=== PATIENT | male | born 1950 | race Caucasian/White ===

== ENCOUNTER 2021-04-15 13:13 | Outpatient (CLI) | payer MEDICARE, SELFPAY ==
[2021-04-15 14:32] LABS: SARS-CoV-2 Ag Negative (Negative)
[2021-04-16 19:52] LABS: SARS-CoV-2 RNA PCR Negative
== END 2021-04-15 13:14 | disposition home or self-care (01) ==
LOC: CHSLAB 13:19
PROVIDERS: PCP Family Medicine; Visit Provider Family Medicine
DX: Z20.822 Contact with and (suspected) exposure to COVID-19 (principal)
CPT/HCPCS: 87426; C9803; U0003; U0005

== ENCOUNTER → 2024-01-14 14:39 | Outpatient (REF) | payer MEDICARE, SELFPAY | LOC: ANHLAB 14:39 | PROVIDERS: PCP Family Medicine; Visit Provider Plastic Surgery | DX: D09.9 Carcinoma in situ, unspecified (principal) | CPT/HCPCS: 88305 ==

== ENCOUNTER → 2024-06-27 15:45 | Outpatient (REF) | payer MEDICARE, SELFPAY ==
--- OUTSIDE RECORDS SUMMARY | 2024-06-27 17:10 | XMS_ITS | Encounter Summary ---
Author Organization [facility] Address [address] [place] [address] Care Team Providers Care Dry Cleaning Checker Name Role Phone Francois Rodriguez MD Primary Care Provider [phone] Araceli TurnerP- Unavailable [phone] Cassie Steven MD Unavailable Encounter Details Date Type Department Care Team (Late Contact Info) Description 04/12/2020 Abstract [facility] [address] [place] [phone] Abstract, Doc [facility] Social History Tobacco Use Types Packs/Day Years Used Date Smoking Tobacco: Former Cigarettes Q uit: 1972 Smokeless Tobacco: Never Alcohol Use Standard Drinks/Week Comments Yes 0 (1 standard drink = 0.6 oz pur e alcohol) 4 weekly Sex and Gender Information Value Date Recorded Sex Assigned at Male 04/28/2024 1:06 PM FLIGHT DATA TECHNICIAN Legal Sex Male 8:40 PM CDT Gender Identity Not on file Sexual Orientation Not on file Occupation Industry Job Start Date Job End Date Not on file Not on file Not on file Not on file COVID-19 Exposure Response Date Recorded In the last month, have you been in contact with someone who was confirmed or suspected to have Coronavirus / COVID-19? No / Unsure 04/12/2020 11:38 AM FLIGHT DATA TECHNICIAN documented as of this encounter Plan of Treatment Upcoming Encounters Date Type Department Care Team (Late Contact Info) Description 12/05/2024 2:45 PM CDT Office Visit [facility] [address] [place] [phone] Cassie Steven MD [address] [place] [address] documented as of this encounter Procedures Procedure Name Priority Date/Time Associated Diagnosis Comments CMP (ABSTRACTED LAB) Routine 03/30/2019 HEMOGLOBIN, GLYCOSYLATED Routine 03/30/2019 LIPID PANEL Routine 03/30/2019 documented in this encounter Results * LIPID PANEL (03/30/2019) CHOLESTEROL 156 HDL 44 TRIGLYCERIDES 154 LDL (CALCULATED) 81 03/30/2019 us Doc [facility] LABORAT[facility] Final Result * HEMOGLOBIN, GLYCOSYLATED (03/30/2019) ESTIMATED AVG GLUCOSE 7.4 03/30/2019 us Doc [facility] LABORATORY Final Result * CMP (ABSTRACTED LAB) (03/30/2019) SODIUM S/P/B 141 POTASSIUM S/P/B 4.2 CHLORIDE S/P/B 102 CO2 24 BUN 16 CREATININE S/P/B 1.0 0.7 - 1.3 EGFR AFR. AMER. 90 <=90 EGFR NON-AFR. AMER. 78 <=90 CALCIUM S/P/B 9.7 GLUCOSE 139 mg/dL TOTAL PROTEIN S/P/B 6.7 ALBUMIN S/P/B 4.6 3.5 - 5.0 AST 22 ALT 24 ALKALINE PHOSPHATASE S/P/B 112 BILIRUBIN TOTAL S/P/B 0.3 03/30/2019 us Doc [facility] Abstract LAB-OUTSIDE/ABSTRACTED Final Result documented in this encounter Visit Diagnoses Not on filedocumented in this encounter Additional Health Concerns Infection Onset Date Last Indicated Resolved Time COVID-19 Rule Out 07/09/2020 07/09/2020 07/10/2020 9:25 AM CDT COVID-19 Rule Out 06/01/2021 06/01/2021 06/01/2021 6:51 PM FLIGHT DATA TECHNICIAN documented as of this encounter Care Teams Dry Cleaning Checker Relationship Specialty Start Date End Date Francois Rodriguez MD [address] [place] [phone] PCP - General FAMILY PRACTICE 10/05/15 Araceli Turner FNP-BC [address] [place] [phone] NURSE PRACTITIONER 11/07/15 08/11/21 Cassie Steven MD [address] [place] [address] Consulting Physician CARDIOVASCULAR DISEASE 05/06/24 documented as of this encounter
--- OUTSIDE RECORDS SUMMARY | 2024-06-27 17:10 | XMS_ITS | Encounter Summary ---
Author Organization [facility] Address [address] [place] [phone] Care Team Providers Care Banana Handler Name Role Phone Francois oRdriguez MD Primary Care Provider Cassie Steven MD Unavailable Encounter Details Date Type Department Care Team (Late Contact Info) Description 05/27/2024 [employer] Sports Message [facility] [address] [place] [phone] [facility] Provider Echo results Social History Tobacco Use Types Packs/Day Years Used Date Smoking Tobacco: Former Cigarettes Q uit: 1972 Smokeless Tobacco: Never Alcohol Use Standard Drinks/Week Comments Not Currently 0 (1 standard drink = 0.6 oz pur e alcohol) 4 weekly Sex and Gender Information Value Date Recorded Sex Assigned at Male 04/28/2024 1:06 PM RISK CONTROL DIRECTOR Legal Sex Male 8:40 PM CDT Gender Identity Not on file Sexual Orientation Not on file Occupation Industry Job Start Date Job End Date Not on file Not on file Not on file Not on file documented as of this encounter Plan of Treatment Upcoming Encounters Date Type Department Care Team (Late Contact Info) Description 12/05/2024 2:45 PM CDT Office Visit [facility] [place] [phone] Cassie Steven MD [address] [place], [place] [phone] documented as of this encounter Visit Diagnoses Not on filedocumented in this encounter Care Teams Banana Handler Relationship Specialty Start Date End Date Francois Rodriguez MD [address] [place] [phone] PCP - General FAMILY PRACTICE 10/05/15 Cassie Steven MD [address] [place] [address] Consulting Physician CARDIOVASCULAR DISEASE 05/06/24 documented as of this encounter
--- OUTSIDE RECORDS SUMMARY | 2024-06-27 17:10 | XMS_ITS | Clinical Summary ---
Author Organization [facility] Address [address] [place] [address] Care Team Providers Care Sack Filler Name Role Phone Francois Rodriguez MD Primary Care Provider Rob Crowley MD Unavailable Allergies No known active allergies Medications buPROPion 12 hr (WELLBUTRIN SR) 150 MG 12 hr tablet Take 1 tablet (150 mg total) by mouth 2 (two) times daily. 7 Active metoprolol tartrate 50 MG tablet Take by mouth 2 (two) times daily. Active nitroGLYCERIN 0.[address] 1 tablet (0.4 mg total) under the tongue every 5 (five) minutes as needed for Chest Pain. Maximum of 3 doses, one tablet every 5 minutes. Active gabapentin 300 MG capsule Take 2 capsules (600 mg total) by mouth 3 (three) times daily. Active atorvastatin 40 MG tablet TAKE ONE TABLET BY MOUTH IN THE EVENING 90 tablet 3 7 Active Additional Information Patient taking differently: 40 mg Oral Nightly at bedtime, TAKE ONE TABLET BY MOUTH IN THE EVENING, Reported on 05/06/2024 magnesium oxide 400 MG tablet Take 1 tablet (400 mg total) by mouth daily. Active pregabalin 150 MG capsule Take 1 capsule (150 mg total) by mouth 2 (two) times a day. 0 Active glipiZIDE XL (GLUCOTROL XL) 5 MG 24 hr tablet Take 1 tablet (5 mg total) by mouth daily. 4 Active omeprazole (PRILOSEC) 40 MG capsule Take 1 capsule (40 mg total) by mouth 2 (two) times daily. 4 Active tamsulosin (FLOMAX) 0.4 MG Cap Take 1 capsule (0.4 mg total) by mouth nightly at bedtime. 4 Active traMADol (ULTRAM) 50 MG tablet Take 1 tablet (50 mg total) by mouth daily. 4 Active NON FORMULARY Carsgisema (Cargrillinitide ) similar to yulyjonnycristobal Active aspirin EC (ECOTRIN) 81 MG tablet Take 1 tablet (81 mg total) by mouth daily. 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 07/12/2020 Cardiovascular stress test abnormal 07/12/2020 CAD (coronary artery disease) Myocardial infarct, old Mixed hyperlipidemia Hypertension Encounters Date Type Department Care Team Description 05/27/2024 TwentyFour6 Message [facility] [address] [place] [address] [facility] Provider Echo results 05/24/2024 1:00 PM POWDER COMPOUNDER - 05/24/2024 11:59 PM POWDER COMPOUNDER Hospital Encounter [facility] [address] [place] [address] Rob Crowley MD Discharge Disposition: Home or Self Care (Routine Discharge) 05/24/2024 Travel 05/09/2024 7:53 AM POWDER COMPOUNDER - 05/09/2024 11:59 PM POWDER COMPOUNDER Hospital Encounter [facility] [address] [place] [address] Abiel Russell PA Discharge Disposition: Home or Self Care (Routine Discharge) 05/09/2024 Travel 05/06/2024 9:30 AM POWDER COMPOUNDER Office Visit [facility] [address] [place] [address] Rob Crowley MD Heart Problem 05/06/2024 9:14 AM POWDER COMPOUNDER - 05/06/2024 11:59 PM POWDER COMPOUNDER Hospital Encounter [facility] [address] [place] [address] Rob Crowley MD Discharge Disposition: Home or Self Care (Routine Discharge) 05/06/2024 Telephone [facility] [address] [place] [address] Rob Crowley MD Information 05/06/2024 Travel 05/05/2024 Telephone [facility] [address] [place] [address] Rob Crowley MD Appointment Reminder 05/05/2024 Orders Only [facility] [address] [place] [address] Rob Crowley MD 04/28/2024 1:09 PM POWDER COMPOUNDER - 04/28/2024 11:59 PM POWDER COMPOUNDER Hospital Encounter [facility] [address] [place] [address] Abiel Russell, PA Discharge Disposition: Home or Self Care (Routine Discharge) 04/28/2024 Orders Only [place] [id number] [place] [address] Abiel Russell, PA 04/28/2024 Travel 04/27/2024 Telephone [facility] [address] [place] [address] Rob Crowley MD Appointment Request (Re-establish cardiac care) from Last 3 Months Immunizations Name Administration Dates Next Due Influenza Adult (Generic) 01/03/2021,12/20/2019, 12/16/2018 Family History Medical History Relation Comments Cancer Brother 1 Diabetes Brother 1 Heart Attack Brother 2 Coronary artery disease Brother 3 history of CABG Heart Attack Father Complications from hip fracture Mother Diabetes Sister 2 No Known Problems Sister 3 No Known Problems Sister 4 Relation Status Comments Brother 1 Brother 2 Alive Brother 3 Alive Father (Age 63) Mother (Age 84) Sister 1 (Age 72) CVA Sister 2 Alive Sister 3 Alive Sister 4 Alive Social History Tobacco Use Types Packs/Day Years Used Date Smoking Tobacco: Former Cigarettes Q uit: 1972 Smokeless Tobacco: Never Alcohol Use Standard Drinks/Week Comments Not Currently 0 (1 standard drink = 0.6 oz pur e alcohol) 4 weekly Sex and Gender Information Value Date Recorded Sex Assigned at Male 04/28/2024 1:06 PM POWDER COMPOUNDER Legal Sex Male 8:40 PM CDT Gender Identity Not on file Sexual Orientation Not on file Occupation Industry Job Start Date Job End Date Not on file Not on file Not on file Not on file Last Filed Vital Signs Vital Sign Reading Time Taken Comments Blood Pressure 130/84 05/06/2024 11:15 AM POWDER COMPOUNDER Pulse 59 05/06/2024 11:15 AM POWDER COMPOUNDER Temperature 36.4 C (97.6 F) 02/23/2024 10:17 AM POWDER COMPOUNDER Respiratory Rate 16 05/06/2024 11:15 AM POWDER COMPOUNDER Oxygen Saturation 100% 05/06/2024 11:15 AM POWDER COMPOUNDER Inhaled Oxygen Concentration - - Weight 87.1 kg (192 lb) 05/06/2024 11:15 AM POWDER COMPOUNDER Height 182.9 cm (6') 05/06/2024 11:15 AM POWDER COMPOUNDER Body Mass Index 26.04 05/06/2024 11:15 AM POWDER COMPOUNDER Plan of Treatment Upcoming Encounters Date Type Department Care Team (Late st Contact Info) Description 12/05/2024 2:45 PM CDT Office Visit [facility] [place] [address] Rob Crowley MD [address] [place] [address] Health Maintenance Due Date Last Done Comments ASCVD Statin 1950 Hepatitis C 09/11/1969 Annual Medicare Wellness Visit 09/11/2016 ASCVD LDL 08/12/2020 08/13/2019, 01/0 03/2019, 09/07/2015, Additional history exists Zoster Vaccines (2 of 2) 02/16/2024 12/22/2023 COVID-19 Vaccine ( season) 2024 12/22/2023, 04/04/2023, 12/27/2021, Additional history exists DTaP, Tdap and Td Vaccines (2 - Td or Tdap) 08/17/2029 08/18/2019 Colorectal Cancer Screening Colonoscopy (10 Years) 06/05/2031 06/04/2021, 06/04/2021 AAA SCREENING Completed 09/01/2023 Influenza Adult Completed 12/11/2023, 11/29, 12/06/2021, Additional history exists Pneumococcal Vaccine: 65+ Years Completed 12/17/2023 RSV Immunization or 60+ Years Completed 12/22/2023 Meningococcal B Vaccine Aged Out No l onger eligible based on patient's age to complete this topic Meningococcal Vaccine Aged Out No nathaniel adriana eligible based on patient's age to complete this topic RSV Immunizations Under 20 Months Aged Out No longer eligible based on patient's age to complete this topic Procedures Procedure Name Priority Date/Time Associated Diagnosis Comments USE ECHOCARDIOGRAM Routine 05/24/2024 2: 54 PM POWDER COMPOUNDER Coronary artery disease involving elem coronary artery of elem heart without angina pectoris NM BONE SCAN WHOLE BODY WO SPECT Routine 05/09/2024 11:30 AM POWDER COMPOUNDER Hypercalcemia USV CAROTID DUPLEX TREY Routine 9:17 AM POWDER COMPOUNDER Dizziness CT HEAD WO CON Routine 05/09/2024 8:13 AM POWDER COMPOUNDER Dizziness ECG 12-LEAD Routine 05/06/2024 9:20 AM POWDER COMPOUNDER Coronary artery disease involving elem coronary artery of elem heart without angina pectoris MISCELLANEOUS LAB TEST Routine 1:25 PM POWDER COMPOUNDER Hypercalcemia COMPREHENSIVE METABOLIC PANEL Routine 04/28/2024 1:25 PM POWDER COMPOUNDER Hypercalcemia CT CHEST WO CON Routine 09/01/2023 9:19 AM CDT Lung nodules COLONOSCOPY 06/04/2021 10:44 AM POWDER COMPOUNDER LIPID PANEL Routine 08/13/2019 Mixed hyperlipidemia from Last 3 Months or Most Recently Relevant to Health Maintenance Results * USE ECHOCARDIOGRAM (05/24/2024 2:54 PM POWDER COMPOUNDER) Anatomical Region Laterality Modality Cardiac Ultrasound 05/24/2024 1:10 PM POWDER COMPOUNDER Narrative 05/24/2024 8:08 PM POWDER COMPOUNDER Echocardiography Report Pat.Name: Daryl Carter Pat.ID: [id number] .Date: 05/24/2024 Refer.MD: Amy, [facility] Exam Time: 1:10:00 PM Study Type:OUTREACH Height: 72 in Weight: 192 lb BSA: 2.09 m2 Age: 6 1950,73Y Sex: M Sonogrphr: Am Pat. Stat.:Outpatient Reason for Study:Coronary artery disease involving elem coronary artery of elem heart without angina pectoris, Shortness of breath Procedures: Study performed at [place], [place] and interpreted by [facility]. 2D, M-mode, Doppler, Color Flow ++++++++++++++++++++++++++++++++++++ SUMMARY: ++++++++++++++++++++++++++++++++++++ The left ventricular size is normal. Estimated left ventricular ejection fraction is 55-60%. Left ventricular diastolic function is abnormal (grade 1 - impaired relaxation). The right ventricle size is normal. The right ventricular function is normal. There is trace tricuspid regurgitation. ++++++++++++++++++++++++++++++++++++ FINDINGS: ++++++++++++++++++++++++++++++++++++ LV: The left ventricular size is normal. The left ventricular systolic function is normal. Estimated left ventricular ejection fraction is 55-60%. Left ventricular diastolic function is abnormal (grade 1 - impaired relaxation). RV: The right ventricle size is normal. The right ventricular function is normal. LA: Left atrial size is normal. RA: The right atrial size is normal. PEDRO: No evidence of pericardial effusion. AO: Aorta is normal. SVn: Inferior vena cava is not assessable. AV: The aortic valve is trileaflet. There is no aortic stenosis. There is no evidence of aortic regurgitation. MV: Structurally normal mitral valve. Trace to mild mitral regurgitation. Redundant chordae visualized. PV: The pulmonic valve is normal There is trace pulmonic regurgitation TV: The tricuspid valve appears structurally normal. There is trace tricuspid regurgitation. <Electronic Signature> 05/24/2024 08:08 PM Rob Crowley M.D. Procedure Note Rob Crowley MD - 05/24/2024 Echocardiography Report Pat.Name: Daryl Carter Pat.ID: [id number] .Date: 05/24/2024 [facility]00 PM Study Type:[facility] Height: 72 in Weight: 192 lb BSA: 2.09 m2 Age: 6 1950,73Y Sex: M Sonogrphr: Am Pat. Stat.:Outpatient Reason for Study:Coronary artery disease involving elem coronary artery of elem heart without angina pectoris, Shortness of breath Procedures: Study performed at [place], [place] and interpreted by [facility]. 2D, M-mode, Doppler, Color Flow ++++++++++++++++++++++++++++++++++++ SUMMARY: ++++++++++++++++++++++++++++++++++++ The left ventricular size is normal. Estimated left ventricular ejection fraction is 55-60%. Left ventricular diastolic function is abnormal (grade 1 - impaired relaxation). The right ventricle size is normal. The right ventricular function is normal. There is trace tricuspid regurgitation. ++++++++++++++++++++++++++++++++++++ FINDINGS: ++++++++++++++++++++++++++++++++++++ LV: The left ventricular size is normal. The left ventricular systolic function is normal. Estimated left ventricular ejection fraction is 55-60%. Left ventricular diastolic function is abnormal (grade 1 - impaired relaxation). RV: The right ventricle size is normal. The right ventricular function is normal. LA: Left atrial size is normal. RA: The right atrial size is normal. PEDRO: No evidence of pericardial effusion. AO: Aorta is normal. SVn: Inferior vena cava is not assessable. AV: The aortic valve is trileaflet. There is no aortic stenosis. There is no evidence of aortic regurgitation. MV: Structurally normal mitral valve. Trace to mild mitral regurgitation. Redundant chordae visualized. PV: The pulmonic valve is normal There is trace pulmonic regurgitation TV: The tricuspid valve appears structurally normal. There is trace tricuspid regurgitation. <Electronic Signature> 05/24/2024 08:08 PM Rob Crowley M.D. us Rob Crowley MD ECHO Final Result * NM BONE SCAN WHOLE BODY WO SPECT (05/09/2024 11:30 AM POWDER COMPOUNDER) Anatomical Region Laterality Modality Bone Nuclear Medicine 05/09/2024 12:2 5 PM POWDER COMPOUNDER Impressions 05/09/2024 12:31 PM POWDER COMPOUNDER IMPRESSION: 1. No focal scintigraphic uptake in a pattern to suggest osteoblastic metastatic disease. 2. Multifocal osteoarthritic degenerative uptake. Ordered By: ABIEL RUSSELL Interpreted By: Felicia Oden MD, 05/09/2024 12:25 PM Narrative 05/09/2024 12:31 PM POWDER COMPOUNDER [place] [id number] [place] [address] EXAMINATION: BONE SCINTIGRAPHY (WHOLE-BODY) DATE OF STUDY: 05/09/2024 RADIOPHARMACEUTICAL: 27.9 mCi Tc-99m MDP i.v. HISTORY: Hypercalcemia. FINDINGS: Delayed whole-body scintigrams were obtained. Additional dedicated static images of the head and neck were obtained. Prior nuclear medicine studies used for comparison: none Other radiographic comparisons: none No focal scintigraphic uptake in a pattern to suggest osteoblastic metastatic disease. Multifocal osteoarthritic degenerative uptake involving the shoulders, sternoclavicular joints, wrists, hands, spine, hips, knees, ankles, and feet. Procedure Note Felicia Oden MD - 05/09/2024 [place] [address] [place] [address] EXAMINATION: BONE SCINTIGRAPHY (WHOLE-BODY) DATE OF STUDY: 05/09/2024 RADIOPHARMACEUTICAL: 27.9 mCi Tc-99m MDP i.v. HISTORY: Hypercalcemia. FINDINGS: Delayed whole-body scintigrams were obtained. Additionaldedicated static images of the head and neck were obtained. Prior nuclear medicine studies used for comparison: none Other radiographic comparisons: none No focal scintigraphic uptake in a pattern to suggest osteoblasticmetastatic disease. Multifocal osteoarthritic degenerative uptakeinvolving the shoulders, sternoclavicular joints, wrists, hands, spine,hips, knees, ankles, and feet. IMPRESSION: 1. No focal scintigraphic uptake in a pattern to suggest osteoblasticmetastatic disease. 2. Multifocal osteoarthritic degenerative uptake. Ordered By: ABIEL RUSSELL Interpreted By: Felicia Oden MD, 05/09/2024 12:25 PM us Abiel Russell [place] [facility] Final Result * USV CAROTID DUPLEX TREY (05/09/2024 9:17 AM POWDER COMPOUNDER) Anatomical Region Laterality Modality Neck Ultrasound 05/09/2024 12:4 2 PM POWDER COMPOUNDER Impressions 05/09/2024 12:53 PM POWDER COMPOUNDER IMPRESSION: 1. Degree of stenosis in the proximal internal carotid arteries in the less than 50% category by past which criteria bilaterally. 2. Bilateral antegrade vertebral artery flow. 3. 2 cm complex partially cystic mass left thyroid gland with increasing complexity of intracystic papillary projections. This is technically indeterminate and of moderate suspicion. Correlation with ultrasound-guided percutaneous biopsy of this lesion would be recommended to exclude malignancy. Ordered By: ABIEL RUSSELL Interpreted By: Frantz Barksdale MD, 05/09/2024 12:42 PM Narrative 05/09/2024 12:53 PM POWDER COMPOUNDER [place] [address] [place] [address] EXAM: ULTRASOUND CAROTID DOPPLER BILATERAL SCAN EXAM DATE: 05/09/2024 9:17 AM CLINICAL STATEMENT: DIZZINESS COMPARISON: Thyroid ultrasound 06/01/2023 PROTOCOL: Sonographic images were obtained over the bilateral carotid distributions evaluating spectral Doppler wave forms and peak systolic velocities. Images were also obtained over both vertebral arteries. Anatomic Site: Right PSV (cm/sec) ___ Left PSV (cm/sec) ----- --------- CCA: 80 74 ECA: 130 130 Proximal ICA: 66 69 Mid ICA: 91 68 Distal ICA: 71 64 ----- --------- ICA/CCA ratio: 1.1 0.9 ----- --------- FINDINGS: The images demonstrate some mild intimal thickening and plaque formation at both common carotid bifurcations. Degree of stenosis in the proximal internal carotid arteries in the less than 50% category by past which criteria bilaterally. Both external carotid arteries are patent. Bilateral antegrade vertebral artery flow. Incidental note is made of a complex partially cystic and partially solid nodule involving the left lobe of the thyroid gland measuring 2.0 cm in diameter. This is similar in overall size compared to previous thyroid ultrasound, however there appears to be somewhat increased irregular papillary soft tissue structures within the cystic component of the nodule. This would be a TIRADS 4 lesion with increasing complex intracystic papillary projections. Ultrasound-guided percutaneous biopsy of this lesion would therefore be recommended to exclude malignancy. Procedure Note Frantz Barksdale MD - 05/09/[address] [place] [address] EXAM: ULTRASOUND CAROTID DOPPLER BILATERAL SCAN EXAM DATE: 05/09/2024 9:17 AM CLINICAL STATEMENT: DIZZINESS COMPARISON: Thyroid ultrasound 06/01/2023 PROTOCOL: Sonographic images were obtained over the bilateral carotiddistributions evaluating spectral Doppler wave forms and peak systolicvelocities. Images were also obtained over both vertebral arteries. Anatomic Site: Right PSV (cm/sec) ___ Left PSV (cm/sec) ----- --------- CCA: 80 74 ECA: 130 130 Proximal ICA: 66 69 Mid ICA: 91 68 Distal ICA: 71 64 ----- --------- ICA/CCA ratio: 1.1 0.9 ----- --------- FINDINGS: The images demonstrate some mild intimal thickening and plaque formationat both common carotid bifurcations. Degree of stenosis in the proximalinternal carotid arteries in the less than 50% category by past whichcriteria bilaterally. Both external carotid arteries are patent. Bilateralantegrade vertebral artery flow. Incidental note is made of a complex partially cystic and partially solidnodule involving the left lobe of the thyroid gland measuring 2.0 cm indiameter. This is similar in overall size compared to previous thyroidultrasound, however there appears to be somewhat increased irregularpapillary soft tissue structures within the cystic component of thenodule. This would be a TIRADS 4 lesion with increasing complexintracystic papillary projections. Ultrasound-guided percutaneous biopsyof this lesion would therefore be recommended to exclude malignancy. IMPRESSION: 1. Degree of stenosis in the proximal internal carotid arteries in theless than 50% category by past which criteria bilaterally. 2. Bilateral antegrade vertebral artery flow. 3. 2 cm complex partially cystic mass left thyroid gland with increasingcomplexity of intracystic papillary projections. This is technicallyindeterminate and of moderate suspicion. Correlation withultrasound-guided percutaneous biopsy of this lesion would be recommendedto exclude malignancy. Ordered By: ABIEL RUSSELL Interpreted By: Frantz Barksdale MD, 05/09/2024 12:42 PM us Abiel Russell [facility] Final Result * CT HEAD WO CON (05/09/2024 8:13 AM POWDER COMPOUNDER) Anatomical Region Laterality Modality Head Computed Tomogra phy 05/09/2024 8:43 AM POWDER COMPOUNDER Impressions 05/09/2024 8:46 AM POWDER COMPOUNDER IMPRESSION: 1) No evidence of acute intracranial abnormality. Ordered By: ABIEL RUSSELL Interpreted By: Frantz Barksdale MD, 05/09/2024 8:43 AM Narrative 05/09/2024 8:46 AM POWDER COMPOUNDER [place] [id number] [facility] [place] [address] Examination: CT HEAD WO CON Exam time: 05/09/2024 8:10 AM Clinical history: Dizziness for one month Comparison: 09/24/2020 Technique: Axial images obtained from level of foramen magnum to the vertex without contrast using low-dose CT technique. Sagittal and coronal reconstruction. Findings: There is a normal craniovertebral junction. Ventricles are normal in size morphology. Extra-axial CSF spaces are normal. Atherosclerotic vascular calcifications are noted involving the [place]. No evidence of acute intracranial hemorrhage. There is no evidence of a focal intracranial mass lesion. No abnormal extra- axial fluid collection is demonstrated. The sella and CP angle regions are unremarkable. There is no evidence of acute regional edema, mass effect or midline shift. Mastoid air cells are clear bilaterally. Paranasal sinuses are clear. Procedure Note Frantz Barksdale MD - 05/09/[address] [place] [address] Examination: CT HEAD WO CON Exam time: 05/09/2024 8:10 AM Clinical history: Dizziness for one month Comparison: 09/24/2020 Technique: Axial images obtained from level of foramen magnum to thevertex without contrast using low-dose CT technique. Sagittal and coronalreconstruction. Findings: There is a normal craniovertebral junction. Ventricles arenormal in size morphology. Extra-axial CSF spaces are normal.Atherosclerotic vascular calcifications are noted involving the [place]. No evidence of acute intracranial hemorrhage. There is no evidence of a focal intracranial mass lesion. No abnormalextra-axial fluid collection is demonstrated. The sella and CP angleregions are unremarkable. There is no evidence of acute regional edema,mass effect or midline shift. Mastoid air cells are clear bilaterally. Paranasal sinuses are clear. IMPRESSION: 1) No evidence of acute intracranial abnormality. Ordered By: ABIEL RUSSELL Interpreted By: Frantz Barksdale MD, 05/09/2024 8:43 AM [address] Russell [place] CT Final Result * ECG 12 lead (HOSPITAL PERFORMED ONLY) (05/06/2024 9:20 AM POWDER COMPOUNDER) 05/06/2024 9:20 AM POWDER COMPOUNDER Narrative [facility] - 05/06/2024 6:50 PM POWDER COMPOUNDER [address] [place] [address] Test Date: 2024-05-06 Pat Name: DARYL CARTER Department: 3 Room: Gender: Male Forklift Material Handler: ZANDER : 1950 Requested By: ROB CROWLEY Order Number: [id number] Reading MD: Rob Crowley Measurements Intervals [place] Rate: 61 P: 230 FL: 128 QRS: 43 QRSD: 104 T: 42 QT: 388 QTc: 392 Interpretive Statements SINUS RHYTHM WITH OCCASIONAL SUPRAVENTRICULAR PREMATURE COMPLEXES ER COMPOUNDER Procedure Note Rob Crowley MD - 05/06/2024 [place] [id number] [facility] [place] [address] Test Date: 2024-05-06 Pat Name: DARYL CARTER Department: 3 Room: Gender: Male Forklift Material Handler: BANNER : 1950 Requested By: ROB CROWLEY Order Number: [id number] Reading MD: Rob Crowley Measurements Intervals [place] Rate: 61 P: 230 FL: 128 QRS: 43 QRSD: 104 T: 42 QT: 388 QTc: 392 Interpretive Statements SINUS RHYTHM WITH OCCASIONAL SUPRAVENTRICULAR PREMATURE COMPLEXES ER COMPOUNDER Rob Crowley MD ECG ORDERABLES Final Result [facility] * MISCELLANEOUS LAB TEST (04/28/2024 1:25 PM POWDER COMPOUNDER) TEST NAME: [id number] ALKALINE PHOSPHATASE FRACTIONATION 04/28/2024 1:28 PM POWDER COMPOUNDER [facility] SPECIMEN TYPE SST SERUM 04/28/2024 1:28 PM POWDER COMPOUNDER [facility] TEST RESULT: Flexitest 1 05/02/2024 1:49 PM POWDER COMPOUNDER [employer] KAYLA DEAN Comment: Flexitest 1 Alkaline Phosphatase Fractionation Alkaline Phosphatase 130 U/L 35-144 Thermostable Fraction 55 U/L Thermostable Fraction 42 % Alkaline phosphatase fractionation interpretation: 1) Thermostable values of greater than 35%: Hepatic disease and combined disease where hepatic component predominates clinically. 2) Thermostable values of 25-35%: Combined hepatic and skeletal disease in various proportions. 3) Thermostable values of less than 25%: Skeletal disease with increased osteoblastic activity. The above figures are relevant only when the total serum alkaline phosphatase is elevated. Test Performed by Micheal Pena, [facility], [address] [place], [place] Aubrey Young M.D., Ph.D., Director of Laboratories , [facility] [id number] 04/28/2024 1:25 PM POWDER COMPOUNDER [facility] Final Result [facility] [employer] [facility] [address] [place], [place] , [place] [phone] [facility] [address] [place] [address], * (ABNORMAL) COMPREHENSIVE METABOLIC PANEL (04/28/2024 1:25 PM POWDER COMPOUNDER) SODIUM S/P/B 139 136 - 145 MMOL/L 04/28/2024 1:48 PM P[employer]DER COMPOUND[employer] [facility] POTASSIUM S/P/B 4.0 3.5 - 5.1 MMOL/L 04/28/2024 1:48 PM [employer] COMP[employer] [facility] CHLORIDE S/P/B 103 98 - 107 MMOL/L 04/28/2024 1:48 PM [employer] COMP[employer] [facility] CO2 27.4 21.0 - 32.0 MMOL/L 04/28/2024 1:48 PM [employer] COMP[employer] [facility] GLUCOSE 163(H) 70 - 99 MG/DL 04/28/2024 1:48 PM [employer] COMP[employer] [facility] Comment: FASTING GLUCOSE 100 TO 125 MG/DL IS CONSISTENT WITH IMPAIRED FASTING GLUCOSE. FASTING GLUCOSE >125 MG/DL IS CONSISTENT WITH DIABETES. RANDOM GLUCOSE >200 MG/DL WITH HYPERGLYCEMIC SYMPTOMS IS CONSISTENT WITH DIABETES. PER ADA GUIDELINES BUN 11 6 - 24 MG/DL 04/28/2024 1:48 PM P[employer]DER COMP[employer] [facility] CREATININE S/P/B 1.11 0.70 - 1.30 MG/DL 04/28/2024 1:48 PM [employer] COMP[employer] [facility] CALCIUM S/P/B 9.1 8.4 - 10.5 MG/DL 04/28/2024 1:48 PM [facility] BILIRUBIN TOTAL S/P/B 0.4 0.2 - 1.0 MG/DL 04/28/2024 1:48 PM [facility] Comment: THIS ASSAY IS NOT RECOMMENDED FOR PATIENTS UNDERGOING TREATMENT WITH ELTROMBOPAG DUE TO THE POTENTIAL FOR FALSELY ELEVATED RESULTS. ALKALINE PHOSPHATASE S/P/B 149(H) 45 - 115 U/L 04/28/2024 1:48 PM [facility] AST 12(L) 15 - 37 U/L 04/28/2024 1:48 PM [facility] ALT 28 16 - 63 U/L 04/28/2024 1:48 PM [facility] TOTAL PROTEIN S/P/B 6.7 6.4 - 8.2 G/DL 04/28/2024 1:48 PM [facility] ALBUMIN S/P/B 3.5 3.4 - 5.0 G/DL 04/28/2024 1:48 PM [facility] ANION GAP 8.6 5.0 - 15.0 MMOL/L 04/28/2024 1:48 PM [facility] OSMOLALITY (CALC) 291 MOSM/KG 025 1:48 PM [facility] Comment:REFERENCE RANGE NOT ESTABLISHED GFR ESTIMATE 71(L) >89 ML/MIN/1. 73 M2 04/28/2024 1:48 PM [facility] GFR NOTES GFR REFERENCE S: 04/28/2024 1:48 PM [facility] Comment: THE ESTIMATED GFR IS CALCULATED USING THE 2020 CKD-EPI EQUATION. THE FOLLOWING CATEGORIES FOR GRADING RENAL FUNCTION ARE RECOMMENDED BY THE [employer]NATIONAL SOCIETY OF NEPHROLOGY (KDIGO 2012 CLINICAL PRACTICE GUIDELINE). G1,NORMAL OR HIGH: >89 ml/min/1.73 m2 G2,MILDLY DECREASED: 60-89 ml/min/1.73 m2 G3A,MILDLY TO MODERATELY DECREASED: 45-59 ml/min/1.73 m2 G3B,MODERATELY TO SEVERELY DECREASED: 30-44 ml/min/1.73 m2 G4,SEVERELY DECREASED: 15-29 ml/min/1.73 m2 G5,KIDNEY FAILURE: <15 ml/min/1.73 m2 04/28/2024 1:25 PM P[employer]DER COMP[employer] [facility] Final Result [facility] [address] [place] [address], * CT CHEST WO CON (09/01/2023 9:19 AM CDT) Anatomical Region Laterality Modality Chest Computed Tomogra phy 09/03/2023 2:23 PM CDT Impressions 09/03/2023 2:37 PM CDT IMPRESSION: 1. Stable appearance of previously present small noncalcified nodules, the largest measuring 6 mm in the right upper lobe. These almost invariably represent benign nodules. Recommend 12 month follow-up study to document stability. 2. No acute abnormality in the chest. Ordered By: ABIEL RUSSELL Interpreted By: Tyson Cortez MD, 09/03/2023 2:23 PM Narrative 09/03/2023 2:37 PM CDT EXAMINATION: CT CHEST - NON CONTRAST INDICATION: Follow-up lung nodules noted on prior CT soft tissue neck. COMPARISON: CT soft tissue neck 05/11/2023 TECHNIQUE: IV contrast: None Technical comments: Standard helical technique. Multiplanar reconstructions were obtained. Dose reduction: A dose lowering technique was used for this procedure, which may include, but is not limited to, dose reduction techniques, automated exposure control, the use of iterative reconstruction, and ALARA (As Low As Reasonably Achievable) / Image Gently techniques. FINDINGS: Evaluation of mediastinal and hilar structures limited due to lack of IV contrast. MEDIASTINUM Support tubes / lines / post surgical changes: None. Base of neck/thyroid: Negative. Heart: Normal in size. Coronary calcifications/stents. No pericardial effusion. Lymph nodes: No significant hilar or mediastinal adenopathy. Small calcified mediastinal and right hilar nodes. No axillary adenopathy. Esophagus: Small hiatal hernia. VASCULATURE Normal calibre ascending aorta. Mild atherosclerotic change and tortuosity of the descending thoracic aorta. No aneurysmal dilatation. Pulmonary arteries normal calibre. LUNGS AND PLEURA Lungs: Stable 6 mm nodule anterior right upper lobe on image 3/48. Stable 4 mm nodule anterior medial right upper lobe image 3/32. Stable 5 mm pleural-based nodule posterior right lower lobe on image 3/47. 2 mm nodule or tiny focus of scarring in the anterior right middle lobe on image 3/66. 3 mm nodule left lower lobe adjacent to the major fissure on image 3/57, this could represent a tiny intrafissural lymph node. There are a few scattered calcified granulomas in the right lung. Probable bibasilar dependent atelectasis. Pleura: No pleural effusion, thickening, or calcification.No pneumothorax. UPPER ABDOMEN No acute abnormality. Incidental tiny cyst in the posterior aspect of the left lobe of the liver. BONES/SOFT TISSUES No destructive lesions identified. Procedure Note Tyosn Cortez MD - 09/03/2023 EXAMINATION: CT CHEST - NON CONTRAST INDICATION: Follow-up lung nodules noted on prior CT soft tissue neck. COMPARISON: CT soft tissue neck 05/11/2023 TECHNIQUE: IV contrast: None Technical comments: Standard helical technique. Multiplanarreconstructions were obtained. Dose reduction: A dose lowering technique was used for this procedure,which may include, but is not limited to, dose reduction techniques,automated exposure control, the use of iterative reconstruction, and ALARA(As Low As Reasonably Achievable) / Image Gently techniques. FINDINGS: Evaluation of mediastinal and hilar structures limited due to lack of IVcontrast. MEDIASTINUM Support tubes / lines / post surgical changes: None. Base of neck/thyroid: Negative. Heart: Normal in size. Coronary calcifications/stents. No pericardialeffusion. Lymph nodes: No significant hilar or mediastinal adenopathy. Smallcalcified mediastinal and right hilar nodes. No axillary adenopathy. Esophagus: Small hiatal hernia. VASCULATURE Normal calibre ascending aorta. Mild atherosclerotic change and tortuosityof the descending thoracic aorta. No aneurysmal dilatation. Pulmonary arteries normal calibre. LUNGS AND PLEURA Lungs: Stable 6 mm nodule anterior right upper lobe on image 3/48. Stable 4 mm nodule anterior medial right upper lobe image 3/32. Stable 5 mm pleural-based nodule posterior right lower lobe on image 3/47. 2 mm nodule or tiny focus of scarring in the anterior right middle lobe onimage 3/66. 3 mm nodule left lower lobe adjacent to the major fissure on image 3/57,this could represent a tiny intrafissural lymph node. There are a few scattered calcified granulomas in the right lung. Probablebibasilar dependent atelectasis. Pleura: No pleural effusion, thickening, or calcification.Nopneumothorax. UPPER ABDOMEN No acute abnormality. Incidental tiny cyst in the posterior aspect of theleft lobe of the liver. BONES/SOFT TISSUES No destructive lesions identified. IMPRESSION: 1. Stable appearance of previously present small noncalcified nodules, thelargest measuring 6 mm in the right upper lobe. These almost invariablyrepresent benign nodules. Recommend 12 month follow-up study to documentstability. 2. No acute abnormality in the chest. 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) Yfn Boyd MD GI PROCEDURE ORDERABLES Final Result * LIPID PANEL (08/13/2019) CHOLESTEROL 116 HDL 41 TRIGLYCERIDES 72 LDL (CALCULATED) 61 VLDL CALCULATION 14 08/13/2019 Param Ayon MD LABORATORY Final Result from Last 3 Months or Most Recently Relevant to Health Maintenance Insurance [place]TRY INSURANCE MEDICARE [id number] INSURANCE MEDICARE Advance Directives * Full Code (Latest Code Status on File) Date Activated Date Inactivated Comments 07/12/2020 8:56 AM 07/12/2020 1:58 PM Care Teams Sack Filler Relationship Specialty Start Date End Date Francois Rodriguez MD [address] [place] [address] [place] [address] PCP - General FAMILY PRACTICE 10/05/15 Rob Crowley MD [address] [place] [address] Consulting Physician CARDIOVASCULAR DISEASE 05/06/24
== END ==
LOC: ANHLAB 15:45
PROVIDERS: PCP Family Medicine; Visit Provider Plastic Surgery
DX: D48.5 Neoplasm of uncertain behavior of skin (principal)
CPT/HCPCS: 88305